=== PATIENT | male | born 2005 ===

== ENCOUNTER 2024-02-06 13:35 | Emergency (ER) | payer SELFPAY ==
--- NOTE | 2024-02-06 13:38 | ED.MALEGU ---
HPI - Male Genitourinary General Time Seen by Provider: 13:39 Date Seen: 02/06/24 Chief complaint: Urogenital Problems, Male Stated complaint: Std check Time Seen by Provider: 02/06/24 13:38 Source: patient, RN notes reviewed and old records reviewed Mode of arrival: ambulatory Limitations: no limitations History of Present Illness HPI Narrative: 18-year-old male who presents today with concern for sexually transmitted infection. Patient reports that he has been sexually active with someone who was recently diagnosed with gonorrhea. Last contact 2 days ago. Patient denies symptoms, no penile discharge, dysuria, testicular pain, lesions or ulcerations of the penis. Related Data Previous Rx's ?Medication ?Instructions ?Recorded doxycycline monohydrate 100 mg 100 mg PO BID #14 tabs 02/06/24 tablet Allergies Allergy/AdvReac Type Severity Reaction Status Date / Time No Known Drug Allergies Allergy Verified 02/06/24 14:01 [facility] Social History Smoking Status: Current every day smoker What tobacco products do you use: cigarettes Do you use any of these nicotine containing products: Vaping Products How often do you have a drink containing alcohol: 2-4 times a month How many standard drinks containing alcohol do you have on a typical day: 1 or 2 How often do you have six or more drinks on one occasion: Never AUDIT-C Alcohol total score: 2 Non-prescribed substance use: denies use Exam Narrative: Exam Narrative: General: Well-developed and well-nourished, no acute distress Head: Atraumatic and normocephalic Eyes: Pupils are equal reactive, extraocular motions intact, conjunctiva clear ENT: External nose and ears are normal, posterior pharynx without erythema or exudate Neck: No midline cervical tenderness, full spontaneous range of motion the neck, trachea midline, no adenopathy Heart: Regular rate and rhythm no murmurs or thrills Lungs: Clear to auscultation bilaterally without wheezes or crackles Abdomen: Soft, nontender, nondistended with active bowel sounds Musculoskeletal: No tenderness, deformity, or edema Neurologic: Awake, alert, and oriented x3, no gross focal neurologic deficits, cranial nerves intact as tested Psych: Mood and affect are appropriate Skin: No rashes : No testicular masses, no ulcerations, no urethral discharge Const: Vital Signs, click to edit/add: Vital Signs - 24 hr 02/06/24 13:48 Temperature 98.7 F Pulse Rate [Pulse Oximeter] 80 Respiratory Rate 16 Blood Pressure [Ri ght Upper Arm] 122/80 Pulse Oximetry 99 Oxygen Delivery Me thod Room Air Course Course ED Course: Patient presents today with concern for sexual transmitted infection. Patient with known gonorrhea exposure, no symptoms. Testing ordered and we discussed plan for treatment, patient is agreeable. Vital Signs Vital signs: Initial Vital Signs Temperature 98.7 F 02/06/24 13:48 Temperature Source Temporal Artery Scan 02/06/24 13:48 Pulse Rate 80 02/06/24 13:48 Pulse Rhythm Regular 02/06/24 13:48 Respiratory Rate 16 02/06/24 13:48 Blood Pressure 122/80 02/06/24 13:48 Blood Pressure Mean 94 02/06/24 13:48 Blood Pressure Position Sitting 02/06/24 13:48 Pulse Oximetry 99 02/06/24 13:48 Oxygen Delivery Method Room Air 02/06/24 13:48 Vital Signs Temperature 98.7 F 02/06/24 13:48 Pulse Rate 80 02/06/24 13:48 Respiratory Rate 16 02/06/24 13:48 Blood Pressure 122/80 02/06/24 13:48 Pulse Oximetry 99 02/06/24 13:48 Oxygen Delivery Method Room Air 02/06/24 13:48 Temperature 98.7 F 02/06/24 13:48 Pulse Rate 80 02/06/24 13:48 Respiratory Rate 16 02/06/24 13:48 Blood Pressure 122/80 02/06/24 13:48 Pulse Oximetry 99 02/06/24 13:48 Oxygen Delivery Method Room Air 02/06/24 13:48 Discharge Plan Discharge Clinical Impression: Possible exposure to STI Patient Disposition: Home, Self-Care Condition: Stable Instructions: Sexually Transmitted Diseases (ED), Safe Sex Practices (ED) Additional Instructions: Take antibiotics as prescribed Follow-up in clinic in 7 to 10 days for further STI testing Activity Level: No Restrictions Discharge Diet: Regular Prescriptions: New doxycycline monohydrate 100 mg tablet 100 mg PO BID Qty: 14 0RF Stand Alone Forms: MyHealth Info Instructions
[2024-02-06 13:48] VITALS: BP 122/80; PULSE 80; RESP 16; TEMP 37.1; O2SAT 99; BMI 23.2
[2024-02-06] MEDS: cefTRIAXone 500 MG VIAL IM (14:30)
[2024-02-06] MEDS: LIDOCAINE 1% 5 ml (pf) 5 ML VIAL 1 ML IM (14:30)
[2024-02-06 15:02] VITALS: BP 122/80; PULSE 80; RESP 16; TEMP 37.1
[2024-02-06 16:08] LABS: Chlamydia DNA Amplified* NOT DETECTED (No Detected); GC DNA Amplified* NOT DETECTED (No Detected)
== END 2024-02-06 15:00 | disposition home or self-care (01) ==
LOC: ED 14:42
PROVIDERS: Emergency Provider Family Medicine
DX: Z20.2 Contact with and (suspected) exposure to infections with a predominantly sexual mode of transmission (principal)
CPT/HCPCS: 87491; 87591; 96372; 99283; 99284; J0696